=== PATIENT | male | born 1935 | race Caucasian/White ===

== ENCOUNTER 2016-12-21 06:57 | Emergency (ER) | payer MEDICARE ==
[~2016-12-21] VITALS: Ht 165.1 cm; Wt 75.0 kg
[~2016-12-21 06:57] MED LIST: ANORO ELLIPTA 61 AER IN; ATENOLOL25 MG PO; ATORVASTATIN CA10 MG PO; CARDIZEM60 MG PO; DUONEB IN; FUROSEMIDE20 MG PO; GUAIFENESIN AC PO; LASIX 20 MG TAB20 MG PO; LUMIGAN0.01 % OP; MICRO-K10 ME1 PO; MILK OF MAG30 ML/UDC PO; OMEPRAZOLE10 MG PO; PERCOCET 5/325M1 TAB PO; PREDNISONE10 MG PO; PROAIR HFA IN; SYMBICORT1 AE1 IN; TESSALON PER100 MG PO; TYLENOL325 MG PO; VENTOLIN HFA IN; ZITHROMAX250 MG PO
[2016-12-21 07:48] LABS: HEMATOCRIT 38.8 % (39.0-50.0); HEMOGLOBIN 12.9 g/dl (14.0-18.0); IMMATURE GRANULOCYTES 0.4 % (0.0-1.0); MEAN CELL VOLUME 88.4 fL CALC (80.0-100.0); MEAN CORPUSCULAR HGB 29.4 pG CALC (26.0-32.0); MEAN CORPUSCULAR HGB CONC 33.2 g/L CALC (32.0-36.0); NEUT# 4.66 thou/uL (1.82-7.42); RED BLOOD COUNT 4.39 mill/uL (4.70-6.10); RED CELL DISTRI WIDTH 13.8 % (11.5-15.5)
[2016-12-21 08:03] LABS: ALBUMIN 3.6 g/dL (3.2-5.0); ALKALINE PHOSPHATASE 96 u/l (38-126); ANION GAP 14 (6-22 (CALC)); BILIRUBIN, TOTAL 0.9 mg/dL (0.0-1.4); BUN 9 mg/dL (8-23); BUN/CREATININE RATIO 9 (12-20 (CALC)); CARBON DIOXIDE 26 mmol/l (22-30); CHLORIDE 108 mmol/l (95-108); GFR > 60 ML/MIN (>=60 (CALC)); GFR FOR AFR.AMER. > 60 ML/MIN (>=60 (CALC)); GLUCOSE 91 mg/dL (82-115); POTASSIUM 3.2 mmol/l (3.5-5.1); SGOT/AST 16 u/l (19-48); SGPT/ALT 22 u/l (11-66); SODIUM 144 mmol/l (137-146); TOTAL PROTEIN 6.3 g/dL (6.3-8.2)
[2016-12-21 08:14] LABS: MYOGLOBIN 45 ng/mL (0 - 121)
[2016-12-21 08:40] LABS: URINE BILIRUBIN - DIPSTICK NEGATIVE (NEGATIVE); URINE BLOOD DIPSTICK NEGATIVE (NEGATIVE); URINE CLARITY CLEAR; URINE COLOR YELLOW; URINE GLUCOSE - DIPSTICK NEGATIVE (NEGATIVE); URINE KETONE NEGATIVE (NEGATIVE); URINE LEUK ESTERASE NEGATIVE (NEGATIVE); URINE NITRITE - DIPSTICK NEGATIVE (Negative); URINE PH 6.5 (4.5-8.0); URINE PROTEIN - DIPSTICK NEGATIVE (NEG-TRACE); URINE SPECIFIC GRAVITY 1.015
[2016-12-21] MEDS ORDERED: MEDDOSEPAK PO (09:11)
[2016-12-21] MEDS ORDERED: ZPAK PO (09:11)
[2016-12-21 09:23] VITALS: BP 141/67
== END 2016-12-21 09:37 | disposition home or self-care (01) ==
LOC: ED 06:57
PROVIDERS: Emergency Medicine
DX: J44.1 Chronic obstructive pulmonary disease with (acute) exacerbation (principal); R06.02 Shortness of breath; F17.210 Nicotine dependence, cigarettes, uncomplicated; R05 Cough

== ENCOUNTER 2017-01-25 20:58 | Inpatient (IN) | payer MEDICARE ==
[~2017-01-25] VITALS: Ht 165.1 cm; Wt 74.1 kg
[~2017-01-25 20:58] MED LIST changes: +MEDDOSEPAK PO; +ZPAK PO
--- NOTE | 2017-01-25 21:05 | NUR ---
PT TO RM 13 VIA W/C.
--- NOTE | 2017-01-25 21:17 | NUR ---
RESP AT BEDSIDE
--- NOTE | 2017-01-25 21:18 | NUR ---
BREATHING TREATMENT GIVEN. BREATHING DEEPLY FOR GOOD DEPOSITION TO THE LUNGS.
--- NOTE | 2017-01-25 21:35 | NUR ---
PT RELATED SLIGHT IMPROVEMENT IN BREATHING TO RESP TECH.
[2017-01-25 21:48] LABS: ALKALINE PHOSPHATASE 96 u/l (38-126); ANION GAP 15 (6-22 (CALC)); BILIRUBIN, TOTAL 0.7 mg/dL (0.0-1.4); BUN 10 mg/dL (8-23); BUN/CREATININE RATIO 10 (12-20 (CALC)); CALCIUM 9.5 mg/dL (8.4-10.2); CARBON DIOXIDE 28 mmol/l (22-30); CHLORIDE 106 mmol/l (95-108); GFR > 60 ML/MIN (>=60 (CALC)); GFR FOR AFR.AMER. > 60 ML/MIN (>=60 (CALC)); GLUCOSE 85 mg/dL (82-115); SGOT/AST 19 u/l (19-48); SGPT/ALT 24 u/l (11-66); SODIUM 145 mmol/l (137-146); TOTAL PROTEIN 6.4 g/dL (6.3-8.2)
[2017-01-25 21:51] LABS: HEMATOCRIT 40.9 % (39.0-50.0); HEMOGLOBIN 13.8 g/dl (14.0-18.0); IMMATURE GRANULOCYTES 0.6 % (0.0-1.0); MEAN CELL VOLUME 88.9 fL CALC (80.0-100.0); MEAN CORPUSCULAR HGB CONC 33.7 g/L CALC (32.0-36.0); NEUT# 5.65 thou/uL (1.82-7.42); RED BLOOD COUNT 4.6 mill/uL (4.70-6.10); RED CELL DISTRI WIDTH 13.6 % (11.5-15.5)
[2017-01-25 22:01] LABS: MYOGLOBIN 49 ng/mL (0 - 121)
--- NOTE | 2017-01-25 22:02 | NUR ---
PT PLACED ON BI-PAP BY RESP TECH PER ORDER DR BUSTOS.
--- NOTE | 2017-01-25 22:05 | NUR ---
PLACED ON BIPAP BECAUSE OF PATIENT WORK OF BREATHING.
--- NOTE | 2017-01-25 22:44 | NUR ---
PT DEMANDED FOR BI-PAP MASK TO BE REMOVED. IT WAS HURTING HIS FACE. RESP CALLED TO ADJUST MASK, PT COULD NOT WAIT. MASK REMOVED. DR BUSTOS INFORMED. PT PLACED ON 02 2L NC. PT RELATED IT FEELS MUCH BETTER.
--- NOTE | 2017-01-25 22:52 | NUR ---
RESP AT BEDSIDE FOR BI-PAP ADJUSTMENT.
--- NOTE | 2017-01-25 22:54 | NUR ---
PT RELATED THE MASK FELT BETTER, WILL TRY TO KEEP ON.
--- NOTE | 2017-01-25 23:34 | NUR ---
PO FLUID PROVIDED TO PT. PT TOLERATED MASK AT THIS TIME.
[2017-01-26] VITALS (16 sets, daily range): BP systolic 105–157; BP diastolic 54–79
--- NOTE | 2017-01-26 00:20 | NUR ---
REPORT CALLED TO [facility]. ICU TO CALL WHEN READY FOR PT.
--- NOTE | 2017-01-26 00:30 | NUR ---
PT WANTED BI-PAP REMOVED, STATED, "I'LL TAKE IT OFF MYSELF" REMOVED PLACED ON 2L NC. RESP CALLED FOR BI-PAP TRANSPORT TO ICU. PT TO ICU VIA STRETCHER WITH RN, MONITOR, 02 2L NC.
--- NOTE | 2017-01-26 00:37 | NUR ---
81 yr old white male adm icu6 per stretcher from er. o2 per nc. rt @ bedside & changed to bipap. wheezing thruout. sob with any exertion. monitoring analyst shows sinus rhythm ivcd. #20 lac saline lock. history obtained per pt & er record. oriented to room. fall precautions initiated. wallet sent to safe per request.
--- NOTE | 2017-01-26 02:00 | NUR ---
eyes closed. bipap cont. no acute resp distress. becomes sob with any exertion.
--- NOTE | 2017-01-26 04:00 | NUR ---
bipap conts. no acute resp distress. monitor shows sinus tach ivcd.
--- NOTE | 2017-01-26 06:00 | NUR ---
no acute change in condition. bipap conts.
--- NOTE | 2017-01-26 07:25 | NUR ---
PT RESTING IN BED ALERT AND ORIETNED WITH BIPAP ON SEE FLOWSHEET FOR SETTINGS, TOLERATING BIPAP WITHOUT INCIDENT, LUNGS WITH WHEEZES THRU OUT, AND NO DISTRESS NOTED, SKIN WARM DRY AND INTACT, TELE READING ST RATE IN THE 100-110'S, BP STABLE IV SITE INTACT SALINE LOCKED, AM ASSESSMENT COMPLETED SEE INTERVENTIONS, SAFETY MEASURES REINFORCED, ENCOAURGED TO CALL FOR ANY NEEDED ASSISTANCE, CALL PORT[facility]O WITHIN REACH.
--- NOTE | 2017-01-26 08:10 | NUR ---
BI PAP OFF, O2 PLACED AT 2L VIA NC, WILL MONITOR TOLERANCE, CALL [facility]O WITHIN REACH
--- NOTE | 2017-01-26 09:15 | NUR ---
CONTINUES TO TOLERATE NC WITH NO DISTRESS NOTED, CALL [facility]O WITHIN REACH, TOLERATED AM MEAL W/O INCIDENT WELL.
--- NOTE | 2017-01-26 09:30 | NUR ---
PT OTLERATING ROOM AIR, NC REMOVED EARLIER BY RT. NO SHORTNESS OF BRATH OR DISTRESS NOTED, CALL [facility] WITHIN REACH
[2017-01-26] MEDS ORDERED: MEDDOSEPAK PO (10:24)
[2017-01-26] MEDS ORDERED: LEVAQUIN750 MG PO (10:24)
--- NOTE | 2017-01-26 10:30 | NUR ---
HR REMAINS ELEVATED PT ASYMPTOMATIC, OFFERS NO COMPLAINTS
--- NOTE | 2017-01-26 11:45 | NUR ---
SET UP ASSIST PROVIDED FOR AFTERNOON MEAL, PT CONTINUES TO TOLERATE NC, NO DISTRESS NOTED, CALL [facility] WITHIN REACH
--- NOTE | 2017-01-26 11:45 | NUR ---
PT RESTING IN BED, SET UP ASSIST PROVIDED FOR AFETRNOON MEAL, NO S/S OF DISTRESS, CONTINUES TO TOLERATE ROOM AIR, SATS 94-96% CALL [facility]O WITHIN REACH.
--- NOTE | 2017-01-26 13:15 | NUR ---
PT RESTING, DOZIES INTERMITTENLY, TOLERATING ROOM AIR WELL, CALL [facility] WITHIN REACH
--- NOTE | 2017-01-26 14:15 | NUR ---
HR REMAINS TACHYCARDIC LOW 100'S PT REMAINS ASYMPTOMATIC, AWARE D/C ON HOLD, WILL CONTINUE TO MONITOR.
--- NOTE | 2017-01-26 15:04 | NUR ---
NEW ORDERS REC'D, CALL [facility]O WITHIN REACH.
--- NOTE | 2017-01-26 15:14 | NUR ---
PT EDUCATED REGARIDNG PLAN TO STAY FOR EVENING INCLUDING MEDICATION CHANGES, PT VERBALIZES AGGRAVATION BUT AGREEABLE TO STAYING AT THIS TIME, CALL [facility] WITHIN REACH
--- NOTE | 2017-01-26 16:37 | NUR ---
PT RESTING IN BED NO CHANGES NOTED TELE READING SR RATE 92
--- NOTE | 2017-01-26 18:11 | NUR ---
PT RESTING IN BED, SET UP ASSIST PROVIDED FOR PM MEAL, HR MINIMALLY IMPROVED AT 96, NO S/S OF DISTRESS NOTED, REMAINS ON ROOM AIR, CALL [facility] WITHIN REACH
--- NOTE | 2017-01-26 18:50 | NUR ---
REPORT FROM SRIDHAR ONEILL. ASSUMED PT. CARE.
--- NOTE | 2017-01-26 20:02 | NUR ---
PT. COMPLETED NEB TREATMENT AT THIS TIME. REMAINS WITH EXPIRATORY WHEEZES. HR STABLE. SINUS AT 92. SPO2 IS 93% ON RA POST NEB TREATMENT.
--- NOTE | 2017-01-26 21:31 | NUR ---
PT. RESTING IN BED IN NO DISTRESS. HR STABLE, SINUS AT 90 AT THIS TIME. BP REMAINS STABLE. SPO2 IS 95% ON RA. RESPS EVEN AND UNLABORED. SKIN WARM AND DRY. PROVIDED WITH PM SNACK. NO COMPLAINTS.
--- NOTE | 2017-01-26 23:20 | NUR ---
NEB TREATMENT IN PROGRESS AT THIS TIME. REMAINS IN NO DISTRESS. PT. ASSISTED TO RESTROOM. SMALL FORMED BM NOTED AT THIS TIME. BP/HR REMAIN STABLE AT THIS TIME. WILL CONTINUE TO MONITOR.
[2017-01-27] VITALS: BP 125/66
--- NOTE | 2017-01-27 01:10 | NUR ---
PT. RESTING IN BED IN NO DISTRESS. REMAINS AWAKE, ALERT. RESPS MILDLY DYSPENIC UPON EXERTION. SPO2 REMAINS STABLE AT THIS TIME. 96% ON RA. DENIES COMPLAINTS OF PAIN OR NEED. VSS.
[2017-01-27 02:00] VITALS: BP 120/56
--- NOTE | 2017-01-27 03:00 | NUR ---
PT. ASSISTED TO RESTROOM AT THIS TIME. AMBULATORY WITH STEADY GAIT. RESPS EVEN AND UNLABORED. DYSPNEIC UPON RETURN FROM RESTROOM. 94% ON RA POST EXERTION. BP AND HR STABLE. REMAINS SINUS IN THE 80'S AT THIS TIME. DENIES COMPLAINTS OF PAIN OR NEED.
[2017-01-27 04:00] VITALS: BP 132/57
--- NOTE | 2017-01-27 05:00 | NUR ---
PT. ASSISTED WITH URINAL AT THIS TIME. REORIENTED TO SITUATION. LEADS REPLACED AND SPO2 PLACED BACK ON PATIENT. DENIES COMPLAINTS OF PAIN OR NEED. CALL LIGHT REMAINS WITHIN REACH. NO DISTRESS.
[2017-01-27 06:00] VITALS: BP 112/55
--- NOTE | 2017-01-27 06:45 | NUR ---
REPORT RECEIVED FROM SRIDHAR LOZOYA. PT SITTING IN BS CHAIR. EAGER FOR DISCHARGE. PT IS ALERT BUT DOES APPEAR TO SHOW SOME CONFUSION. PT VSS. CALL LIGHT WITHIN REACH. INSTRUCTED PT TO CALL FOR ASSISTANCE, WILL CONTINUE TO MONITOR.
--- NOTE | 2017-01-27 07:21 | NUR ---
PT ANXIOUS, AND READY TO GO HOME. SITTING ON SIDE OF BED STATES "CAN I GO HOME NOW?" MD NOTIFIED, OF CURRENT DISCHARGE ORDER FROM PREVIOUS DAY, IF PT UNABLE OR UNWILLING TO STAY AND BE ASSESSED, HE MAY BE DISCHARGED, PER DR. WEBB.
--- NOTE | 2017-01-27 07:53 | NUR ---
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 Patient verbalizes understanding of same. Discharged in fair condition via Wheelchair to Home with *Other. All belongings sent with pt.
== END 2017-01-27 07:45 | disposition home or self-care (01) | DRG 192 ==
LOC: ENPENDDIS → ED 20:58 → ED-I 22:20 → ED 22:55 → ICU 22:56
PROVIDERS: Emergency Medicine; ADMIT Internal Medicine; ATTEND Internal Medicine
PROC: 5A09357 Assistance with Respiratory Ventilation, Less than 24 Consecutive Hours, Continuous Positive Airway Pressure (ICD-10-PCS; principal; 2017-01-25)
DX: J44.0 Chronic obstructive pulmonary disease with (acute) lower respiratory infection (principal); I10 Essential (primary) hypertension; J44.1 Chronic obstructive pulmonary disease with (acute) exacerbation; J20.9 Acute bronchitis, unspecified; R00.0 Tachycardia, unspecified; Z87.891 Personal history of nicotine dependence

== ENCOUNTER 2017-02-26 03:55 | Emergency (ER) | payer MEDICARE ==
[~2017-02-26] VITALS: Ht 165.1 cm; Wt 80.5 kg
[~2017-02-26 03:55] MED LIST changes: +LEVAQUIN750 MG PO
[2017-02-26 04:55] LABS: ALBUMIN 3.7 g/dL (3.2-5.0); ALKALINE PHOSPHATASE 98 u/l (38-126); ANION GAP 14 (6-22 (CALC)); BILIRUBIN, TOTAL 0.5 mg/dL (0.0-1.4); BUN 11 mg/dL (8-23); BUN/CREATININE RATIO 10 (12-20 (CALC)); CALCIUM 9.1 mg/dL (8.4-10.2); CARBON DIOXIDE 25 mmol/l (22-30); CHLORIDE 107 mmol/l (95-108); CREATININE 1.1 mg/dL (0.7-1.3); GFR > 60 ML/MIN (>=60 (CALC)); GFR FOR AFR.AMER. > 60 ML/MIN (>=60 (CALC)); GLUCOSE 89 mg/dL (82-115); POTASSIUM 3.5 mmol/l (3.5-5.1); SGOT/AST 17 u/l (19-48); SGPT/ALT 24 u/l (11-66); SODIUM 143 mmol/l (137-146); TOTAL PROTEIN 5.9 g/dL (6.3-8.2)
[2017-02-26 05:03] LABS: HEMATOCRIT 40.8 % (39.0-50.0); HEMOGLOBIN 13.6 g/dl (14.0-18.0); IMMATURE GRANULOCYTES 0.5 % (0.0-1.0); MEAN CELL VOLUME 87.4 fL CALC (80.0-100.0); MEAN CORPUSCULAR HGB 29.1 pG CALC (26.0-32.0); MEAN CORPUSCULAR HGB CONC 33.3 g/L CALC (32.0-36.0); NEUT# 5.09 thou/uL (1.82-7.42); RED BLOOD COUNT 4.67 mill/uL (4.70-6.10); RED CELL DISTRI WIDTH 13.7 % (11.5-15.5)
[2017-02-26 05:07] LABS: MYOGLOBIN 67 ng/mL (0 - 121)
[2017-02-26] MEDS ORDERED: MEDDOSEPAK PO (05:26)
[2017-02-26] MEDS ORDERED: ZPAK PO (05:26)
[2017-02-26 06:00] VITALS: BP 130/63
== END 2017-02-26 06:04 | disposition home or self-care (01) ==
LOC: ED 03:55 → ED-I 05:23 → ED 06:04
PROVIDERS: Emergency Medicine
DX: J44.1 Chronic obstructive pulmonary disease with (acute) exacerbation (principal); I10 Essential (primary) hypertension; K21.9 Gastro-esophageal reflux disease without esophagitis; E78.5 Hyperlipidemia, unspecified

== ENCOUNTER 2017-03-31 15:56 | Emergency (ER) | payer MEDICARE ==
[~2017-03-31] VITALS: Ht 165.1 cm; Wt 90.0 kg
[2017-03-31 16:34] LABS: HEMATOCRIT 41.8 % (39.0-50.0); HEMOGLOBIN 13.7 g/dl (14.0-18.0); IMMATURE GRANULOCYTES 1.6 % (0.0-1.0); MEAN CELL VOLUME 89.7 fL CALC (80.0-100.0); MEAN CORPUSCULAR HGB 29.4 pG CALC (26.0-32.0); MEAN CORPUSCULAR HGB CONC 32.8 g/L CALC (32.0-36.0); NEUT# 7.07 thou/uL (1.82-7.42); RED BLOOD COUNT 4.66 mill/uL (4.70-6.10); RED CELL DISTRI WIDTH 15.1 % (11.5-15.5)
[2017-03-31 16:39] LABS: URINE BILIRUBIN - DIPSTICK NEGATIVE (NEGATIVE); URINE BLOOD DIPSTICK NEGATIVE (NEGATIVE); URINE CLARITY CLEAR; URINE COLOR YELLOW; URINE GLUCOSE - DIPSTICK NEGATIVE (NEGATIVE); URINE KETONE NEGATIVE (NEGATIVE); URINE LEUK ESTERASE NEGATIVE (NEGATIVE); URINE NITRITE - DIPSTICK NEGATIVE (Negative); URINE PROTEIN - DIPSTICK NEGATIVE (NEG-TRACE); URINE SPECIFIC GRAVITY 1.025
[2017-03-31 16:47] LABS: ALBUMIN 3.9 g/dL (3.2-5.0); ALKALINE PHOSPHATASE 79 u/l (38-126); ANION GAP 12 (6-22 (CALC)); BUN 15 mg/dL (8-23); BUN/CREATININE RATIO 13 (12-20 (CALC)); CALCIUM 8.8 mg/dL (8.4-10.2); CARBON DIOXIDE 24 mmol/l (22-30); CHLORIDE 108 mmol/l (95-108); CREATININE 1.2 mg/dL (0.7-1.3); GFR 58 ML/MIN (>=60 (CALC)); GFR FOR AFR.AMER. > 60 ML/MIN (>=60 (CALC)); GLUCOSE 85 mg/dL (82-115); POTASSIUM 4.2 mmol/l (3.5-5.1); SGOT/AST 25 u/l (19-48); SGPT/ALT 37 u/l (11-66); SODIUM 140 mmol/l (137-146); TOTAL PROTEIN 6.4 g/dL (6.3-8.2)
[2017-03-31 16:59] LABS: MYOGLOBIN 53 ng/mL (0 - 121)
[2017-03-31] MEDS ORDERED: MEDDOSEPAK PO (17:51)
[2017-03-31] MEDS ORDERED: ZPAK PO (17:51)
[2017-03-31 18:00] VITALS: BP 122/67
== END 2017-03-31 18:09 | disposition home or self-care (01) ==
LOC: ED 15:56
PROVIDERS: Emergency Medicine
DX: R06.02 Shortness of breath (principal); R00.0 Tachycardia, unspecified; R50.9 Fever, unspecified

== ENCOUNTER 2017-04-08 08:17 | Emergency (ER) | payer MEDICARE ==
[~2017-04-08] VITALS: Ht 172.7 cm; Wt 80.0 kg
[2017-04-08 08:42] LABS: HEMATOCRIT 43.7 % (39.0-50.0); HEMOGLOBIN 14.6 g/dl (14.0-18.0); IMMATURE GRANULOCYTES 2.2 % (0.0-1.0); MEAN CELL VOLUME 90.7 fL CALC (80.0-100.0); MEAN CORPUSCULAR HGB 30.3 pG CALC (26.0-32.0); MEAN CORPUSCULAR HGB CONC 33.4 g/L CALC (32.0-36.0); NEUT# 7.75 thou/uL (1.82-7.42); RED BLOOD COUNT 4.82 mill/uL (4.70-6.10); RED CELL DISTRI WIDTH 14.6 % (11.5-15.5)
[2017-04-08 08:53] LABS: ANION GAP 15 (6-22 (CALC)); BUN 16 mg/dL (8-23); BUN/CREATININE RATIO 14 (12-20 (CALC)); CALCIUM 9.2 mg/dL (8.4-10.2); CARBON DIOXIDE 29 mmol/l (22-30); CHLORIDE 105 mmol/l (95-108); CREATININE 1.1 mg/dL (0.7-1.3); GFR > 60 ML/MIN (>=60 (CALC)); GFR FOR AFR.AMER. > 60 ML/MIN (>=60 (CALC)); GLUCOSE 81 mg/dL (82-115); POTASSIUM 4.3 mmol/l (3.5-5.1); SODIUM 144 mmol/l (137-146)
[2017-04-08] MEDS ORDERED: PREDNISONE50 MG PO (09:12)
[2017-04-08] MEDS ORDERED: ZPAK PO (09:12)
[2017-04-08 09:51] VITALS: BP 136/67
== END 2017-04-08 09:51 | disposition home or self-care (01) ==
LOC: ED 08:17
PROVIDERS: Family Medicine
DX: J44.1 Chronic obstructive pulmonary disease with (acute) exacerbation (principal); R06.02 Shortness of breath; I10 Essential (primary) hypertension; F17.210 Nicotine dependence, cigarettes, uncomplicated

== ENCOUNTER 2017-04-10 05:05 | Emergency (ER) | payer MEDICARE ==
[~2017-04-10] VITALS: Ht 172.7 cm; Wt 80.0 kg
[~2017-04-10 05:05] MED LIST changes: +PREDNISONE50 MG PO
[2017-04-10 05:39] LABS: HEMATOCRIT 40.4 % (39.0-50.0); HEMOGLOBIN 13.3 g/dl (14.0-18.0); IMMATURE GRANULOCYTES 1.9 % (0.0-1.0); MEAN CELL VOLUME 90.6 fL CALC (80.0-100.0); MEAN CORPUSCULAR HGB 29.8 pG CALC (26.0-32.0); MEAN CORPUSCULAR HGB CONC 32.9 g/L CALC (32.0-36.0); NEUT# 10.02 thou/uL (1.82-7.42); RED BLOOD COUNT 4.46 mill/uL (4.70-6.10); RED CELL DISTRI WIDTH 14.8 % (11.5-15.5)
[2017-04-10 05:52] LABS: ALBUMIN 3.6 g/dL (3.2-5.0); ALKALINE PHOSPHATASE 66 u/l (38-126); ANION GAP 13 (6-22 (CALC)); BILIRUBIN, TOTAL 0.7 mg/dL (0.0-1.4); BUN 21 mg/dL (8-23); BUN/CREATININE RATIO 18 (12-20 (CALC)); CALCIUM 9.1 mg/dL (8.4-10.2); CARBON DIOXIDE 28 mmol/l (22-30); CHLORIDE 108 mmol/l (95-108); CREATININE 1.2 mg/dL (0.7-1.3); GFR 58 ML/MIN (>=60 (CALC)); GFR FOR AFR.AMER. > 60 ML/MIN (>=60 (CALC)); GLUCOSE 85 mg/dL (82-115); POTASSIUM 4.1 mmol/l (3.5-5.1); SGOT/AST 24 u/l (19-48); SGPT/ALT 41 u/l (11-66); SODIUM 145 mmol/l (137-146); TOTAL PROTEIN 5.9 g/dL (6.3-8.2)
[2017-04-10 06:04] LABS: MYOGLOBIN 65 ng/mL (0 - 121)
[2017-04-10 06:28] LABS: URINE BILIRUBIN - DIPSTICK NEGATIVE (NEGATIVE); URINE BLOOD DIPSTICK NEGATIVE (NEGATIVE); URINE CLARITY CLEAR; URINE COLOR YELLOW; URINE GLUCOSE - DIPSTICK NEGATIVE (NEGATIVE); URINE KETONE NEGATIVE (NEGATIVE); URINE LEUK ESTERASE NEGATIVE (NEGATIVE); URINE NITRITE - DIPSTICK NEGATIVE (Negative); URINE PROTEIN - DIPSTICK NEGATIVE (NEG-TRACE); URINE UROBILINOGEN - DIPSTICK 0.2 E.U./dL (0.2)
[2017-04-10 06:56] VITALS: BP 143/69
== END 2017-04-10 06:58 | disposition home or self-care (01) ==
LOC: ED 05:05
DX: J44.1 Chronic obstructive pulmonary disease with (acute) exacerbation (principal); I10 Essential (primary) hypertension; K21.9 Gastro-esophageal reflux disease without esophagitis; E78.5 Hyperlipidemia, unspecified

== ENCOUNTER 2017-05-09 22:47 | Inpatient (IN) | payer MEDICARE ==
[~2017-05-09] VITALS: Ht 172.7 cm; Wt 77.0 kg
--- NOTE | 2017-05-09 22:50 | NUR ---
PATIENT TO ROOM 13 VIA EMS STRETCHER. UNDRESSED INTO A GOWN. PLACED ON MONITOR. TRIAGE COMPLETED AT BEDSIDE. AWAITING MD JOHNSON.
[2017-05-09 23:22] LABS: HEMATOCRIT 40.2 % (39.0-50.0); HEMOGLOBIN 13.4 g/dl (14.0-18.0); IMMATURE GRANULOCYTES 0.9 % (0.0-1.0); MEAN CELL VOLUME 89.9 fL CALC (80.0-100.0); MEAN CORPUSCULAR HGB CONC 33.3 g/L CALC (32.0-36.0); NEUT# 5.91 thou/uL (1.82-7.42); RED BLOOD COUNT 4.47 mill/uL (4.70-6.10); RED CELL DISTRI WIDTH 14.1 % (11.5-15.5)
--- NOTE | 2017-05-09 23:30 | NUR ---
RESPIRATORY AT BEDSIDE FOR NEB TREATMENT.
[2017-05-09] MEDS ORDERED: ROBITUSSIN AC10 ML PO (23:38)
[2017-05-09 23:42] LABS: ALBUMIN 3.9 g/dL (3.2-5.0); ALKALINE PHOSPHATASE 100 u/l (38-126); ANION GAP 15 (6-22 (CALC)); BUN 18 mg/dL (8-23); BUN/CREATININE RATIO 15 (12-20 (CALC)); CALCIUM 9.1 mg/dL (8.4-10.2); CARBON DIOXIDE 26 mmol/l (22-30); CHLORIDE 102 mmol/l (95-108); CREATININE 1.2 mg/dL (0.7-1.3); GFR 58 ML/MIN (>=60 (CALC)); GFR FOR AFR.AMER. > 60 ML/MIN (>=60 (CALC)); GLUCOSE 101 mg/dL (82-115); POTASSIUM 3.8 mmol/l (3.5-5.1); SGOT/AST 38 u/l (19-48); SGPT/ALT 29 u/l (11-66); SODIUM 140 mmol/l (137-146)
[2017-05-09] MEDS ORDERED: STIOLTO RESPIMA1 AER IN (23:42)
[2017-05-09 23:44] LABS: ACT PARTIAL THROMBO TIME 25.5 SECONDS (20.0-32.5); INTERNATIONAL NORMALIZED RATIO 0.9 RATIO (0.7-1.3)
[2017-05-09] MEDS ORDERED: KLOR-CON 1010 MEQ PO (23:44)
[2017-05-09] MEDS ORDERED: ATENOLOL25 MG PO (23:45)
[2017-05-09] MEDS ORDERED: LASIX 20 MG TAB20 MG PO (23:45)
[2017-05-09] MEDS ORDERED: TYLENOL325 MG PO (23:48)
[2017-05-09] MEDS ORDERED: SENOKOT S1 TAB PO (23:50)
[2017-05-09] MEDS ORDERED: COMPAZINE10 MG PO (23:53)
[2017-05-09] MEDS ORDERED: ERYTHROMYCIN O3.5 GM OU (23:55)
[2017-05-09] MEDS ORDERED: BISACODYL10 M1 RE (23:57)
[2017-05-09] MEDS ORDERED: LORAZEPAM0.5 MG PO (23:57)
[2017-05-10] MEDS ORDERED: HYOSCYAMINE0.125 MG SL (00:01)
[2017-05-10] MEDS ORDERED: TYLENOL650 MG RE (00:01)
[2017-05-10] MEDS ORDERED: HALDOL1 M1 PO (00:09)
[2017-05-10] MEDS ORDERED: ALPRAZOLAM0.25 M1 PO (00:10)
--- NOTE | 2017-05-10 00:10 | NUR ---
LAB AT BEDSIDE FOR ADDITIONAL BLOOD DRAW. FIRST ABX HUNG ORDERED. PATIENT AWARE OF PLANS TO ADMIT.
--- NOTE | 2017-05-10 00:23 | NUR ---
REPORT TO DEVON. PATIENT READIED FOR TRANSPORT TO FLOOR. PATIENT DENIES ANY COMPLAINTS AT PRESENT.
[2017-05-10 00:45] VITALS: BP 116/68
--- NOTE | 2017-05-10 00:45 | NUR ---
RECEIVED FROM ER VIA STRETCHER ACCOMPANIED BY ER NURSE, OUT OF STRETCHER TO BED WITH UNSTEADY GAIT. A/O X3, BECOMES SOB WITH ACTIVITY, ADMITS TO SOB FOR THE PAST FIVE DAYS BUT BECAME WORSE YESTERDAY, O2 @2L VIA NC IN PLACE. LEVAQUIN INFUSING TO RAC WITH NO COMPLICATION. TELE IN PLACE READING ST 103. ORIENTED TO BED CONTROLS AND CALL LIGHT, PO FLUIS IN REACH, URINAL AT BED SIDE.
--- NOTE | 2017-05-10 00:45 | NUR ---
PATIENT TO MED SURG VIA STRETCHER.
--- NOTE | 2017-05-10 04:10 | NUR ---
RESTING IN SEMIFOWLERS WITH EYES CLOSED, RESPIRATIONS EVEN AND UNLABORED.
[2017-05-10 04:42] VITALS: BP 104/64
[2017-05-10 08:11] VITALS: BP 126/58
[2017-05-10 12:24] VITALS: BP 131/75
[2017-05-10 15:04] VITALS: BP 108/60
[2017-05-10 19:04] VITALS: BP 115/64
--- NOTE | 2017-05-10 20:20 | NUR ---
PT IN BED WATCHING TV, RESPIRATIONS EVEN AND UNLABORED ON O2 @2L VIA NC. OFFERS NO CONCERNS.
--- NOTE | 2017-05-10 20:35 | NUR ---
PT IN BED WATCHING TV, RESPIRATIONS EVEN AND UNLABORED. VIBRAMYCIN SPIKED AND INFUSING WITH NO COMPLICATIONS TO RAC. NEW IV SITE STARTED TO LFA BY LETTY WALLER DUE TO [facility] BEING AN EMS SITE, WILL DC AFTER ANTIBIOTIC INFUSED. VOICES NO CONCERNS, CALL LIGHT IN REACH.
[2017-05-10 21:30] LABS: URINE BILIRUBIN - DIPSTICK NEGATIVE (NEGATIVE); URINE BLOOD DIPSTICK NEGATIVE (NEGATIVE); URINE CLARITY CLEAR; URINE COLOR YELLOW; URINE GLUCOSE - DIPSTICK NEGATIVE (NEGATIVE); URINE KETONE NEGATIVE (NEGATIVE); URINE LEUK ESTERASE NEGATIVE (NEGATIVE); URINE NITRITE - DIPSTICK NEGATIVE (Negative); URINE PROTEIN - DIPSTICK NEGATIVE (NEG-TRACE)
--- NOTE | 2017-05-10 23:45 | NUR ---
CODE EXIT CLEARED PT TRANSFERRED BACK TO [facility] SURGE ROOM 268, ALL BELONGINS WITH HIM, AT BED SIDE.
--- NOTE | 2017-05-11 | NUR ---
CODE EXIT CLEARED PT TRANSFERRED BACK TO [facility] SURGE ROOM 268, ALL BELONGINS WITH PT.
[2017-05-11 03:20] VITALS: BP 123/77
[2017-05-11 06:55] LABS: HEMATOCRIT 36.9 % (39.0-50.0); HEMOGLOBIN 12.6 g/dl (14.0-18.0); IMMATURE GRANULOCYTES 0.9 % (0.0-1.0); MEAN CELL VOLUME 89.3 fL CALC (80.0-100.0); MEAN CORPUSCULAR HGB 30.5 pG CALC (26.0-32.0); MEAN CORPUSCULAR HGB CONC 34.1 g/L CALC (32.0-36.0); NEUT# 9.51 thou/uL (1.82-7.42); RED BLOOD COUNT 4.13 mill/uL (4.70-6.10)
[2017-05-11 07:03] LABS: ANION GAP 17 (6-22 (CALC)); BUN 23 mg/dL (8-23); BUN/CREATININE RATIO 20 (12-20 (CALC)); CALCIUM 9.4 mg/dL (8.4-10.2); CARBON DIOXIDE 21 mmol/l (22-30); CHLORIDE 106 mmol/l (95-108); CREATININE 1.2 mg/dL (0.7-1.3); GFR 58 ML/MIN (>=60 (CALC)); GFR FOR AFR.AMER. > 60 ML/MIN (>=60 (CALC)); GLUCOSE 132 mg/dL (82-115); POTASSIUM 3.6 mmol/l (3.5-5.1); SODIUM 140 mmol/l (137-146)
[2017-05-11 07:13] VITALS: BP 128/73
--- NOTE | 2017-05-11 07:35 | NUR ---
PT.SITTING ON SIDE OF BED WATCHING TV, DENIES ANY NEEDS AT THIS TIME, CALL LIGHT IS W/IN REACH
--- NOTE | 2017-05-11 10:18 | NUR ---
PT.SITTING ON SIDE OF BED, DENIES ANY NEEDS AT THIS TIME, PT.WATCHING TV AND HAS CALL LIGHT W/IN REACH
--- NOTE | 2017-05-11 10:21 | NUR ---
PT.AMBULATED HALLWAY, PT.WAS LAYED BACK IN BED "TAKING A NAP," HE HAS BEEN MEDICATED W/MORNING MEDS AND IS NOW SITTING ON SIDE OF BED W/CALL LIGHT AT SIDE, WATCHING TV. ANTIBIOTIC IV THERAPY IS RUNNING AT THIS TIME
--- NOTE | 2017-05-11 11:20 | NUR ---
PT IS AMBULATING IN THE [place] WITH NO DISTRESS NOTED. IV SITE IS FREE FROM REDNESS OR EDMEA.
[2017-05-11 15:30] VITALS: BP 119/65
--- NOTE | 2017-05-11 16:19 | NUR ---
PT IS AMBULATING IN THE [place] WITH NO DISTRESS NOTED. IV SITE IS FREE FROM REDNESS OR EDEMA.
[2017-05-11 19:20] VITALS: BP 127/74
--- NOTE | 2017-05-11 19:28 | NUR ---
BEDSIDE REPORT RECEIVED FROM SILVERIO HEBERT. PT SITTING UP IN BED WITH STREET CLOTHES ON. STATES THAT HE THOUGH HE WAS GOING HOME AND WILL CHANGE INTO GOWN BEFORE BED. DENIES PAIN AT THIS TIME. RESPIRATIONS EVEN AND UNLABORED ON 2L OF OXYGEN VIA NC. LUNGS CLEAR. PLAN OF CARE DISCUSSED. PT ENCOURAGED TO VERBALIZE CONCERNS. STATES UNDERSTANDING. SAFETY MEASURES IN PLACE. CALL LIGHT WITHIN REACH.
--- NOTE | 2017-05-11 23:05 | NUR ---
PT. RESTING IN BED WITH NO DISTRESS NOTED. DENIES NEEDS/PAIN. ENCOURAGED TO CALL FOR ANY NEEDS. CALL LIGHT IS IN REACH.
--- NOTE | 2017-05-12 04:32 | NUR ---
PT. RESTING IN BED ON LEFT SIDE WITH EYES OPEN, DENIES NEEDS. ENCOURAGED TO CALL FOR ANY NEEDS. CALL LIGHT IS IN REACH. WILL CONTINUE TO MONITOR.
[2017-05-12 04:55] VITALS: BP 148/74
--- NOTE | 2017-05-12 05:34 | NUR ---
PT. RESTING IN BED WITH NO DISTRESS NOTED. RESP EVEN AND UNLABORED. SCHEDULED SOLU MEDROL GIVEN. ENCOURAGED TO CALL FOR ANY NEEDS. CALL LIGHT IS IN REACH.
--- NOTE | 2017-05-12 08:30 | NUR ---
PT C/O COUGH; REQUEST NEB TX; RT NOTIFIED; ENCOURAGE USE OF CALL LIGHT IF ANY ASSISTANCE IS NEEDED; WILL CONTINUE TO MONITOR.
[2017-05-12 08:40] VITALS: BP 113/69
--- NOTE | 2017-05-12 11:00 | NUR ---
PT SITTING IN CHAIR IN HALLS; DENIES PAIN; CALL [facility] WITHIN REACH; WILL CONTINUE TO MONITOR.
--- NOTE | 2017-05-12 13:30 | NUR ---
PT AMBULATORY IN THE HALLS; NO COMPLAINTS VOICED; CALL [facility]O WITHIN REACH; WILL CONTINUE TO MONITOR.
--- NOTE | 2017-05-12 14:15 | NUR ---
Discharge instructions given. Patient verbalizes understanding of same. Discharged in stable condition via Taxi to [facility] with SELF. All belongings sent with pt.
== END 2017-05-12 14:11 | disposition hospice, inpatient (51) | DRG 191 ==
LOC: ED 22:47 → ED-I 23:50 → ED 05-10 00:11 → MS2 05-10 00:12
PROVIDERS: Emergency Medicine; ADMIT Internal Medicine; ATTEND Internal Medicine
DX: J44.1 Chronic obstructive pulmonary disease with (acute) exacerbation (principal); J96.10 Chronic respiratory failure, unspecified whether with hypoxia or hypercapnia; Z99.81 Dependence on supplemental oxygen; I10 Essential (primary) hypertension; K21.9 Gastro-esophageal reflux disease without esophagitis; E78.5 Hyperlipidemia, unspecified; F41.9 Anxiety disorder, unspecified; Z51.5 Encounter for palliative care; Z87.891 Personal history of nicotine dependence
CPT/HCPCS: J1650

== ENCOUNTER 2017-06-10 21:20 | Emergency (ER) | payer MEDICARE ==
[~2017-06-10] VITALS: Ht 172.7 cm; Wt 75.0 kg
[~2017-06-10 21:20] MED LIST changes: +ALPRAZOLAM0.25 M1 PO; +BISACODYL10 M1 RE; +COMPAZINE10 MG PO; +ERYTHROMYCIN O3.5 GM OU; +HALDOL1 M1 PO; +HYOSCYAMINE0.125 MG SL; +KLOR-CON 1010 MEQ PO; +LORAZEPAM0.5 MG PO; +ROBITUSSIN AC10 ML PO; +SENOKOT S1 TAB PO; +STIOLTO RESPIMA1 AER IN; +TYLENOL650 MG RE
[2017-06-10 22:15] LABS: HEMATOCRIT 41.1 % (39.0-50.0); HEMOGLOBIN 13.6 g/dl (14.0-18.0); IMMATURE GRANULOCYTES 0.9 % (0.0-1.0); MEAN CELL VOLUME 91.5 fL CALC (80.0-100.0); MEAN CORPUSCULAR HGB 30.3 pG CALC (26.0-32.0); MEAN CORPUSCULAR HGB CONC 33.1 g/L CALC (32.0-36.0); NEUT# 8.47 thou/uL (1.82-7.42); RED BLOOD COUNT 4.49 mill/uL (4.70-6.10); RED CELL DISTRI WIDTH 14.5 % (11.5-15.5)
[2017-06-10 22:21] LABS: ACT PARTIAL THROMBO TIME 24.3 SECONDS (20.0-32.5); ALKALINE PHOSPHATASE 105 u/l (38-126); ANION GAP 18 (6-22 (CALC)); BILIRUBIN, TOTAL 1.4 mg/dL (0.0-1.4); BUN 13 mg/dL (8-23); BUN/CREATININE RATIO 11 (12-20 (CALC)); CALCIUM 9.2 mg/dL (8.4-10.2); CARBON DIOXIDE 23 mmol/l (22-30); CHLORIDE 106 mmol/l (95-108); CREATININE 1.2 mg/dL (0.7-1.3); GFR 58 ML/MIN (>=60 (CALC)); GFR FOR AFR.AMER. > 60 ML/MIN (>=60 (CALC)); GLUCOSE 90 mg/dL (82-115); POTASSIUM 4.6 mmol/l (3.5-5.1); PROTHROMBIN TIME 10.4 SECONDS (9.0-12.5); SGOT/AST 30 u/l (19-48); SGPT/ALT 27 u/l (11-66); SODIUM 142 mmol/l (137-146); TOTAL PROTEIN 6.6 g/dL (6.3-8.2)
--- NOTE | 2017-06-10 22:53 | NUR ---
respiratory treatment given. breathing tech. for good deposition to the lungs.
[2017-06-11 13:17] VITALS: BP 121/66
== END 2017-06-11 14:50 | disposition hospice, inpatient (51) ==
LOC: ED 21:20
PROVIDERS: Emergency Medicine
DX: J81.1 Chronic pulmonary edema (principal); Z51.5 Encounter for palliative care; R07.89 Other chest pain; J44.9 Chronic obstructive pulmonary disease, unspecified; I10 Essential (primary) hypertension; K21.9 Gastro-esophageal reflux disease without esophagitis; E78.5 Hyperlipidemia, unspecified; R06.02 Shortness of breath